=== PATIENT | female | born 1985 | race Hispanic/Latino ===

== ENCOUNTER 2016-04-01 14:30 | Emergency (ER) | payer OTHER ==
[~2016-04-01] VITALS: Ht 152.4 cm; Wt 63.5 kg
[2016-04-01] MEDS ORDERED: PROBIOTIC1 EACH PO (16:25)
[2016-04-01] MEDS ORDERED: ZOLOFT100 M1 PO (16:33)
[2016-04-01] MEDS ORDERED: ATIVAN1 M1 PO (16:33)
--- NOTE | 2016-04-01 16:34 | ED PSYCHIATRIC COMPLAINT ---
History of Present Illness General Chief Complaint: General Adult Stated Complaint: ANXIETY ATTACKS Source: patient, old records Exam Limitations: no limitations Vital Signs & Intake/Output Vital Signs & Intake/Output Vital Signs Date Time Temp Pulse Resp B/P Pulse O2 O2 Flow FiO2 Ox Delivery Rate 04/01 1708 97.4 88 18 152/94 98 Room Air Room Air 04/01 1437 96.4 111 20 176/100 98 Room Air Allergies Coded Allergies: No Known Allergies (04/01/16) Reconcile Medications Lactobacillus Acidophilus (Probiotic) (Unknown Strength) CAPSULE (Unknown Dose ) PO DAILY PROBIOTIC (Reported) Lorazepam (Ativan) 1 MG TABLET 1 TAB PO TID PRN ANXIETY Sertraline HCl (Zoloft) 100 MG TABLET 1 TAB PO DAILY ANXIETY Triage Note: 30 Y/O FEW DAYS. STATES SHE USED TO BE ON LEXAPRO, ATIVAN, XANAX AND KLONIPIN WITH GOOD RELIEF BUT HAS NOT BEEN ON MEDS FOR A "WHILE". STATES SHE IS HAVING A HARD TIME SLEEPING, IS HUNGRY BUT IS NOT EATING. DENIES SI/HI. Triage Nurses Notes Reviewed? yes : No Patient currently breastfeeds: No HPI: 30-year-old female with history of anxiety presents to emergency room for evaluation stating that she's been without her anxiety medications for the past few weeks after a recent move. The patient states she was being seen by a psychiatrist in [place]. He denies suicidal or homicidal ideation. She states she's had good relief with Ativan and Zoloft in the past. She denies suicidal or homicidal ideation. She's had difficulty sleeping and poor appetite due to her symptoms. She is declining wishing to speak with crisis today. She denies tobacco or alcohol use. (JESUS TAVERAS) Past History Travel History Traveled to [place] past 21 day No Medical History Any Pertinent Medical History? 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 No (JESUS TAVERAS) Review of Systems Review of Systems Constitutional: Reports: see HPI. All Other Systems: Reviewed and Negative Comments Review of systems: See HPI, All other systems negative. Constitutional, no chills no fever, no malaise HEENT: No visual changes no sore throat no congestion, Cardiovascular: No chest pain , no palpitation Skin, no rashes, no change in skin Respiratory: No dyspnea no cough no sputum GI: No nausea no vomiting, no diarrhea, : No dysuria Muscle skeletal: No joint pain, no back pain, no neck pain, Neurologic: No numbness no headache Psych: No stress Heme/endocrine: No bruising no bleeding Immunology: No lymphadenopathy (JESUS TAVERAS) Physical Exam Physical Exam General Appearance: well developed/nourished, no apparent distress, alert, awake Neurological/Psychiatric: no motor/sensory deficits, awake, alert, normal mood/ affect, calm, international trade analyst II-XII nml as tested Comments: Well-developed well-nourished person in no acute distress HEENT: Normal EENT exam; PERRL, EOMI, \\HEAD is atraumatic. moist mucous membranes. Neck: Supple, normal range of motion\\ Back: Nontender, Full range of motion Cardiovascular: Regular rate and rhythms no murmurs rubs Respiratory: No respiratory distress. Patient speaking in full complete sentences. Breath sounds clear to auscultation bilaterally: NO W/R/R Extremity: No edema, full range of motion of extremities, Neuro: Alert oriented x3, motor sensory normal. There were no obvious focal neurologic abnormalities. Skin: No appreciable rash on exposed skin, skin is warm and dry. Psych: Mood and affect is normal, memory and judgment is normal. SAD PERSONS Done? patient not suicidal (JESUS TAVERAS) Progress Differential Diagnosis: electrolyte abnormality, hyperthyroid, anxiety Plan of Care: Current Medications Sig/Stella Start time Last Medication Dose Stop Time Status Admin Sertraline HCl 100 MG ONCE ONE 04/01 1645 CAN (Zoloft) 04/01 1646 Patient declining wishing to speak with crisis, Zoloft Ativan ordered prescriptions for the same were provided. She will follow up with primary care as well as recommendations information provided for above. She feels comfortable plan she'll return anytime sooner with any concerns (JESUS TAVERAS) Departure Departure Time of Disposition: 163 Disposition: HOME OR SELF CARE Condition: Stable Clinical Impression Primary Impression: Anxiety Referrals: VAIBHAV DEGROOT DO PATIENT HAS NO PRIMARY CARE DR (PCP/Family) Additional Instructions: ZOLOFT AND ATIVAN DIRECTED. THESE PRESCRIPTIONS WERE SENT TO THE [facility]. FOLLOW UP WITH YOUR PSYCHIATRIST ON MONDAY. RETURN ANYTIME SOONER WITH ANY CONCERNS Departure Forms: Customer Survey General Discharge Information Prescriptions: Current Visit Scripts Sertraline HCl (Zoloft) 1 TAB PO DAILY #30 TAB Lorazepam (Ativan) 1 TAB PO TID PRN ANXIETY #15 TAB (JESUS TAVERAS) PA/CLINICAL LABORATORY MANAGER Co-Sign Statement Statement: ED Attending supervision documentation- [] I saw and evaluated the patient. I have also reviewed all the pertinent lab results and diagnostic results. I agree with the findings and the plan of care as documented in the PA's/CLINICAL LABORATORY MANAGER's documentation. [x] I have reviewed the ED Record and agree with the PA's/CLINICAL LABORATORY MANAGER's documentation. [] Additions or exceptions (if any) to the PAs/CLINICAL LABORATORY MANAGER's note and plan are summarized below: [] (POLI KHANNA DO
[2016-04-01 17:08] VITALS: BP 152/94
== END 2016-04-01 17:10 ==
LOC: EDBD 14:30 → ERH 14:30
DX: F41.9 Anxiety disorder, unspecified (principal)

== ENCOUNTER 2016-04-08 08:51 | Emergency (ER) | payer OTHER ==
[~2016-04-08] VITALS: Ht 152.4 cm; Wt 63.5 kg
[~2016-04-08 08:51] MED LIST: ATIVAN1 M1 PO; PROBIOTIC1 EACH PO; ZOLOFT100 M1 PO
[2016-04-08 09:02] VITALS: BP 112/70
--- NOTE | 2016-04-08 09:08 | ED PSYCHIATRIC COMPLAINT ---
History of Present Illness General Chief Complaint: General Adult Stated Complaint: ANXIETY Source: patient, old records Exam Limitations: no limitations Vital Signs & Intake/Output Vital Signs & Intake/Output Vital Signs Date Time Temp Pulse Resp B/P Pulse O2 O2 Flow FiO2 Ox Delivery Rate 04/08 0902 97.2 103 20 112/70 98 Room Air Allergies Coded Allergies: No Known Allergies (04/01/16) Reconcile Medications Lactobacillus Acidophilus (Probiotic) (Unknown Strength) CAPSULE (Unknown Dose ) PO DAILY PROBIOTIC (Reported) Lorazepam (Ativan) 1 MG TABLET 1 TAB PO TID PRN ANXIETY Lorazepam (Ativan) 1 MG TABLET 1 TAB PO TID PRN anxiety Sertraline HCl (Zoloft) 100 MG TABLET 1 TAB PO DAILY ANXIETY Triage Note: PT SEEN HERE LAST WEEK FOR ANXIETY AND STARTED ON ATIVAN AND ZOLOFT. PT STATES SHE RAN OUT OF HER MEDICATIONS ON MONDAY AND WAS SUPPOSE TO FOLLOW UP WITH PSYCH MD TODAY BUT WENT TO THE WRONG LOCATION AND HAS TO RESCHEDULE HER APPT. PT STATES SHE HASN'T BEEN SLEEPING OR EATING WELL. PT STATES SHE FEELS MORE ANXIOUS THAN NORMAL Triage Nurses Notes Reviewed? yes : No Patient currently breastfeeds: No HPI: patient is a 30-year-old female presents complaining of severe anxiety. Patient reports that she has a history of anxiety and depression, suddenly moved [place] back to [place] and is working on establishing psychiatric care. Patient was seen in the emergency department earlier this month and prescribed Zoloft and Ativan. Patient reports she has been taking the Zoloft for approximately 1.5 weeks with no improvement. Patient ran out of Ativan 2 days ago and has been feeling increased anxiety, difficulty sleeping, decreased appetite. Patient had an intake appointment with [facility] today but reports that she missed her appointment due to going to the wrong location. Patient plans on contacting them after discharge to try to get another appointment. Patient reports numerous stressors, including being a single mother, moving back to [place], not having psychiatric care. Patient denies suicidal ideation, illicit substance ingestion, alcohol ingestion. Past History Travel History Traveled to [place] past 21 day No Medical History Any Pertinent Medical History? 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 No Review of Systems Review of Systems Constitutional: Denies: chills, fever. EENTM: Reports: no symptoms. Respiratory: Denies: cough, short of breath. Cardiovascular: Denies: chest pain. GI: Denies: abdominal pain. Musculoskeletal: Reports: no symptoms. Skin: Reports: no symptoms. Neurological/Psychological: Reports: see HPI. Hematologic/Endocrine: Reports: no symptoms. Immunologic/Allergic: Reports: no symptoms. Physical Exam Physical Exam General Appearance: well developed/nourished, alert, awake, anxious Head: atraumatic, normal appearance Eyes: Bilateral: normal appearance, PERRL, EOMI. Ears, Nose, Throat: normal pharynx, normal ENT inspection, hearing grossly normal Neck: normal inspection, supple, full range of motion Respiratory: normal breath sounds, no respiratory distress, lungs clear Cardiovascular: regular rate/rhythm Neurological/Psychiatric: no motor/sensory deficits, awake, alert, anxious Appearance/Memory/Insight: appropriate appearance, appropriate insight Behavoir/Eye Contact/Speech: cooperative, good eye contact Thoughts/Hallucinations: normal thought pattern, no apparent hallucination Skin: intact, normal color, warm/dry SAD PERSONS Done? patient not suicidal Progress Differential Diagnosis: drug intoxication, drug overdose, drug withdrawal, anxiety, depression, panic disorder, drug seeking Plan of Care: Offered hydroxyzine, patient reports that she has taken this in the past with no improvement. I discussed with the patient that emergency department cannot prescribe extended periods of agitation aspirin therapy. Encouraged patient to continue the Zoloft hopefully become therapeutic and she is only been on the medication for approximately 1.5 weeks. Carotid patient with a short course of Ativan and patient to contact [facility] after discharge for appointment. Departure Departure Time of Disposition: 915 Disposition: HOME OR SELF CARE Condition: Stable Clinical Impression Primary Impression: Anxiety Secondary Impressions: Panic disorder Referrals: JOSE ALONSO MD PATIENT HAS NO PRIMARY CARE DR (PCP/Family) Additional Instructions: Follow up with [facility] to establish psychiatric care. Also follow up with Dr. Alonso to establish a primary doctor. Continue the Zoloft as previously directed. Return to the ER if increasing depression, suicidal ideation or worsening of symptoms. Departure Forms: Customer Survey General Discharge Information Prescriptions: Current Visit Scripts Lorazepam (Ativan) 1 TAB PO TID PRN anxiety #10 TAB
[2016-04-08] MEDS ORDERED: ATIVAN1 M1 PO (09:17)
== END 2016-04-08 09:24 ==
LOC: ERH 08:51
DX: F41.9 Anxiety disorder, unspecified (principal); F41.0 Panic disorder [episodic paroxysmal anxiety]

== ENCOUNTER 2016-05-08 17:20 | Emergency (ER) | payer OTHER ==
[~2016-05-08] VITALS: Ht 152.4 cm; Wt 64.4 kg
[2016-05-08 17:30] VITALS: BP 141/97
[2016-05-08] MEDS ORDERED: MULTI-DAY VITA1 EACH PO (18:12)
[2016-05-08] MEDS ORDERED: ZOLOFT100 M1 PO (18:28)
[2016-05-08] MEDS ORDERED: ATIVAN0.5 M1 PO (18:28)
--- NOTE | 2016-05-08 18:29 | ED GENERAL ADULT ---
History of Present Illness General Chief Complaint: General Adult Stated Complaint: MEDICATION REFILL Source: patient Exam Limitations: no limitations Vital Signs & Intake/Output Vital Signs & Intake/Output Vital Signs Date Time Temp Pulse Resp B/P Pulse O2 O2 Flow FiO2 Ox Delivery Rate 05/08 1730 98.1 81 18 141/97 99 Room Air Allergies Coded Allergies: No Known Allergies (04/01/16) Reconcile Medications Lactobacillus Acidophilus (Probiotic) (Unknown Strength) CAPSULE (Unknown Dose ) PO DAILY PROBIOTIC (Reported) Lorazepam (Ativan) 1 MG TABLET 1 TAB PO TID PRN anxiety Lorazepam (Ativan) 0.5 MG TABLET 1 TAB PO BIDP PRN anxiety Multivitamin (Multi-Day Vitamins) 1 EACH TABLET 1 TAB PO DAILY SUPPLEMENT ( Reported) Sertraline HCl (Zoloft) 100 MG TABLET 1 TAB PO DAILY ANXIETY Sertraline HCl (Zoloft) 100 MG TABLET 1 TAB PO DAILY anxiety Triage Note: PT TO ED FOR MED REFILL, STATES SHE JUST BEGAN SEEING A COUNSELOR AT [facility] FOR ANXIETY AND DEPRESSION AND IS UNABLE TO GET AN APPT WITH AN MD UNTIL JULY. STATING SHE NEEDS HER ZOLOFT 100MG DAILY AND ATIVAN 1MG BID PRN REFILLED. Triage Nurses Notes Reviewed? yes : No Patient currently breastfeeds: No HPI: 30-year-old female here with complaints of medication refill. She was advised by her counselor to come in to get a refill of her medication. She has not seen a psychiatrist and is on Zoloft and Ativan that was given here initially and she is requesting renewal of medications. She is also received during off her Ativan given by her DIVING SUPERVISOR doctor a few weeks ago. She does not have a primary care doctor at this time due to a change in her insurance. She has no complaints, no fever no flulike illness no depression. She states that she often does not eat the Ativan. I discussed with her that she needs follow-up with a single doctor such as a primary care doctor or psychiatrist to prescribe her medications. We cannot continue to provide medication in the emergency Department for her. She is given referral information for primary care doctor. (ARACELI PORTER,[place]) Past History Travel History Traveled to [place] past 21 day No Medical History Any Pertinent Medical History? 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 No ([place]) Review of Systems Review of Systems Constitutional: Reports: see HPI. EENTM: Reports: no symptoms. Respiratory: Reports: no symptoms. Cardiovascular: Reports: no symptoms. GI: Reports: no symptoms. Genitourinary: Reports: no symptoms. Musculoskeletal: Reports: no symptoms. Skin: Reports: no symptoms. Neurological/Psychological: Reports: see HPI. Hematologic/Endocrine: Reports: no symptoms. Immunologic/Allergic: Reports: no symptoms. All Other Systems: Reviewed and Negative ([place]) Physical Exam Physical Exam General Appearance: well developed/nourished Comments: Well-developed well-nourished no apparent distress. HEENT: Atraumatic, extraocular motion intact Neck: Supple, no lymphadenopathy Back: Nontender Respiratory: No respiratory distress Extremities: No edema, full range of motion Neuro: Alert and oriented x3 Psych: Mood affect normal, normal memory normal judgment. Skin: Warm and dry, no rash on exposed skin Core Measures ACS in differential dx? No CVA/TIA Diagnosis: No Severe Sepsis Present: No Septic Shock Present: No ([place]) Progress Differential Diagnoses I considered the following diagnoses in my evaluation of the patient: Drug abuse, depression, anxiety Plan of Care: Patient referred to [facility] for primary care doctor Initial ED EKG: none ([place]) Departure Departure Disposition: HOME OR SELF CARE Condition: Stable Clinical Impression Primary Impression: Anxiety Referrals: JOSE ALONSO MD PATIENT HAS NO PRIMARY CARE DR (PCP/Family) Additional Instructions: Take medication as directed for your anxiety Please follow up with a primary care doctor has the ER cannot continue to prescribe mental health medications Departure Forms: Customer Survey General Discharge Information Prescriptions: Current Visit Scripts Lorazepam (Ativan) 1 TAB PO BIDP PRN anxiety #14 TAB Sertraline HCl (Zoloft) 1 TAB PO DAILY #20 TAB ([place]) PA/REGISTERED NURSE STEP DOWN Co-Sign Statement Statement: ED Attending supervision documentation- [] I saw and evaluated the patient. I have also reviewed all the pertinent lab results and diagnostic results. I agree with the findings and the plan of care as documented in the PA's/REGISTERED NURSE STEP DOWN's documentation. x I have reviewed the ED Record and agree with the PA's/REGISTERED NURSE STEP DOWN's documentation. [] Additions or exceptions (if any) to the PAs/REGISTERED NURSE STEP DOWN's note and plan are summarized below: [] (ELENA HOLDEN,MAICOL) Critical Care Note Critical Care Note Critical Care Time: non-applicable (ARACELI PORTER,[place])
== END 2016-05-08 18:32 ==
LOC: ERH 17:20
DX: F41.9 Anxiety disorder, unspecified (principal)
CPT/HCPCS: 99281